=== PATIENT | female | born 1995 | race Caucasian/White ===

== ENCOUNTER 2021-03-11 21:26 | Emergency (ER) | payer BC ==
[~2021-03-11] VITALS: Ht 170.1 cm; Wt 73.5 kg
== END 2021-03-11 22:09 | disposition home or self-care (01) ==
LOC: ED 21:26
DX: T78.40XA Allergy, unspecified, initial encounter (principal); H11.421 Conjunctival edema, right eye; Z88.8 Allergy status to other drugs, medicaments and biological substances; Z88.2 Allergy status to sulfonamides; X58.XXXA Exposure to other specified factors, initial encounter